=== PATIENT | female | born 1980 | race Caucasian/White ===

== ENCOUNTER → 2018-06-25 06:55 | Outpatient (CLI) | payer OTHER, SELFPAY ==
--- NOTE | 2018-06-25 07:00 | DI.US.S_ITS ---
PROCEDURE: US PELVIC COMPLETE INDICATIONS: DUB TECHNIQUE: Real-time scanning was performed of the pelvic organs, with image documentation. Additional endovaginal scanning was necessary due to incomplete visualization of the adnexal and endometrial structures by transabdominal scanning. COMPARISON: None. FINDINGS: Transabdominal scanning: Limited scanning through the kidneys shows no hydronephrosis. No pathologic free abdominal or pelvic fluid. Endovaginal scanning: Uterus: Uterus is normal in size at 4.5 x 6.4 x 9.5 cm, anteverted. The endometrium measures 9.3 mm in combined thickness. Ovaries: The right ovary measures 1.5 x 1.9 x 2.7 cm and contains a follicular cyst and the left ovary measures 1.2 x 1.3 x 3.3 cm. IMPRESSION: Normal-appearing endometrial lining, free of mass or abnormal fluid collection. No uterine fibroid is seen. Normal appearing ovaries bilaterally with a right-sided follicular cyst measuring approximately 1.2 cm in maximal dimension. Dictated by: Anthony Aaron M.D. on 06/25/2018 at 8:06 Approved by: Anthony Aaron M.D. on 06/25/2018 at 8:08
== END ==
DX: N93.8 Other specified abnormal uterine and vaginal bleeding (principal); N83.01 Follicular cyst of right ovary
CPT/HCPCS: 76830; 76856

== ENCOUNTER → 2018-07-15 16:16 | Outpatient (CLI) | payer OTHER, SELFPAY ==
--- NOTE | 2018-07-15 16:18 | DI.RAD.S_ITS ---
PROCEDURE: XR LUMBAR SPINE MIN 4V INDICATIONS: point tender low back pain TECHNIQUE: 5 views of the lumbar spine acquired. COMPARISON: None. FINDINGS: Bones: 5 nonrib-bearing vertebrae are present. There is normal bony alignment. No vertebral body compression fractures. No suspicious bony lesions. Mild disc height reduction at L5-S1. Mild to moderate facet osteoarthritis at the facet joints at the same level. Soft tissues: Overlying bowel gas pattern is normal. No suspicious soft tissue calcifications. Flexion/extension: There is normal range of motion, with preserved normal alignment. IMPRESSION: Mild degenerative disc disease at L5-S1, with mild to moderate facet osteoarthritis at this level but no abnormal subluxation is seen during flexion and extension lateral image acquisition. Dictated by: Anthony Aaron M.D. on 07/15/2018 at 16:56 Approved by: Anthony Aaron M.D. on 07/15/2018 at 16:57
--- NOTE | 2018-07-15 16:18 | DI.RAD.S_ITS ---
PROCEDURE: XR ANKLE LT MIN 3V INDICATIONS: left ankle pain and swelling TECHNIQUE: 3 views of the ankle were acquired. COMPARISON: None. FINDINGS: Bones: No fractures or dislocations. Ankle mortise is normally aligned. No suspicious bony lesions. A small bone island is present within the posterior malleolus of the distal tibial plafond Soft tissues: No tibiotalar joint effusion. Achilles tendon appears normal. IMPRESSION: Source of ankle pain and swelling not seen. Incidental note is made of a small bone island at the posterior aspect of the distal tibial plafond, located within the posterior malleolus marrow space. Dictated by: Anthony Aaron M.D. on 07/15/2018 at 16:55 Approved by: Anthony Aaron M.D. on 07/15/2018 at 16:56
== END ==
PROVIDERS: Visit Provider Family Medicine
DX: M51.37 Other intervertebral disc degeneration, lumbosacral region (principal); M47.817 Spondylosis without myelopathy or radiculopathy, lumbosacral region; M25.472 Effusion, left ankle; M25.572 Pain in left ankle and joints of left foot; M54.5 Low back pain
CPT/HCPCS: 72110; 73610

== ENCOUNTER → 2018-09-13 14:32 | Outpatient (CLI) | payer OTHER, SELFPAY ==
--- NOTE | 2018-09-13 | DI.MRI.S_ITS ---
PROCEDURE: MRFOOT LT WO CON INDICATIONS: INJURY TO LEFT FOOT TECHNIQUE: Noncontrast sagittal T1 spin echo and T2 fast spin echo with fat saturation, long-axis T1 spin echo and T2 fast spin echo with fat saturation, short-axis T1 spin echo and T2 fast spin echo with fat saturation through the forefoot. COMPARISON: [facility], CR, XR ANKLE LT MIN 3V, 07/15/2018, 15:56. FINDINGS: Image quality: Excellent. Bones and joints: No bone marrow contusions or metatarsal stress fractures. The sesamoid bones appear in expected positions, without internal edema. No metatarsophalangeal joint degeneration. No intraosseous lesions or edema pattern that would suggest underlying infection or neoplasm. Note is made of a small subchondral cyst at the base of the first proximal phalanx due to mild degenerative osteoarthritic thinning of the articular cartilage in that area. Soft tissues: The visualized plantar foot muscles demonstrate normal signal and bulk. Visualized flexor and extensor tendons appear intact, without tenosynovitis. The distal insertions of the peroneus brevis and longus tendons appear intact. The principal Lisfranc ligament appears intact. No soft tissue ganglion cysts or bursal fluid collections. Sagittal images demonstrate no evidence for plantar plate tears. IMPRESSION: No trauma, no ligamentous injury is suspected. Incidental is made of a small subchondral cyst measuring only approximately 3 mm in diameter adjacent to the proximal articular surface of the first proximal phalanx. Otherwise the marrow space appears normal. Dictated by: Anthony Aaron M.D. on 09/15/2018 at 15:26 Approved by: Anthony Aaron M.D. on 09/15/2018 at 15:31
== END ==
PROVIDERS: Visit Provider Podiatrist
DX: S99.922A Unspecified injury of left foot, initial encounter (principal)
CPT/HCPCS: 73718

== ENCOUNTER → 2018-11-06 16:36 | Outpatient (CLI) | payer OTHER, SELFPAY ==
--- NOTE | 2018-11-06 | DI.RAD.S_ITS ---
PROCEDURE: XR KNEE LT 3V INDICATIONS: left knee pain TECHNIQUE: 3 views of the knee were acquired. COMPARISON: None. FINDINGS: Bones: No fractures or dislocations. No suspicious bony lesions. Soft tissues: Small joint effusion. No suspicious soft tissue calcifications. IMPRESSION: Small effusion otherwise no definite radiographic abnormality. If pain persists, consider cross sectional imaging such as CT or MRI for further assessment. Dictated by: Giovanni HORTON Interpreted: Adriana Hernández MD on 11/07/2018 at 8:53 Approved by: Adriana Hernández M.D. on 11/07/2018 at 15:52
--- NOTE | 2018-11-06 | DI.MRI.S_ITS ---
PROCEDURE: MR ANKLE LT WO CON INDICATIONS: LEFT ANKLE PAIN TECHNIQUE: Noncontrast sagittal T1 spin echo and T2 fast spin echo with fat saturation, axial proton density fast spin echo and T2 fast spin echo with fat saturation, coronal T1 spin echo and T2 fast spin echo with fat saturation through the ankle/hindfoot. COMPARISON: None. FINDINGS: Image quality: Excellent. Bones and joints: No bone marrow contusions or fractures. No hindfoot coalitions. No osteochondral injuries of the talar dome. No pathologic joint effusions. Medial structures: The posterior tibialis, flexor digitorum longus, and flexor hallucis longus tendons are intact. The posterior tibial neurovascular bundle appears normal within the tarsal tunnel, without extrinsic mass effect. The deep layer (anterior and posterior tibiotalar ligaments) and superficial layer (tibionavicular, tibiospring, and tibiocalcaneal ligaments) of the deltoid ligament appear normal. The spring ligament components (superomedial calcaneonavicular, medioplantar oblique calcaneonavicular, and inferoplantar longitudinal ligaments) are intact. Lateral structures: The anterior talofibular, calcaneofibular, and posterior talofibular ligaments appear intact. More superiorly, there is edema and fluid signal in the region of anterior tibiofibular ligament with slight widening of tibiofibular syndesmosis, measures approximately 3-4 mm. Posterior tibiofibular ligament appears intact. The tibiofibular syndesmosis is normal in width 2 mm or less. The peroneus longus and brevis tendons demonstrate normal location and morphology. Adjacent bony peroneal tubercle and retrotrochlear prominence are normal in size. The sinus tarsi demonstrates normal fatty signal, without edema, fibrosis, or cyst formation. Visualized sinus tarsi components (cervical ligament, interosseous talocalcaneal ligament, roots of the inferior extensor retinaculum) appear normal. The calcaneonavicular and calcaneocuboid components of the bifurcate ligament appear intact. The dorsal calcaneocuboid ligament appears intact. Anterior structures: The tibialis anterior, extensor hallucis longus, and extensor digitorum longus tendons appear intact. The dorsal talonavicular ligament appears intact. Posterior and plantar structures: Achilles tendon is intact. Medial and lateral bands of the plantar fascia are of normal thickness. No abductor digiti quinti muscle atrophy to suggest Hurtado neuropathy. IMPRESSION: 1. Findings suggestive of sprain and moderate grade partial-thickness tear involving anterior tibiofibular ligament with widening of distal tibiofibular syndesmosis. Posterior tibiofibular ligament is intact. Anterior and posterior talofibular ligaments are grossly intact. 2. Medial ankle ligaments are intact. 3. Ankle tendons are intact. No marrow signal abnormality. Dictated by: Kole Pickens M.D. on 11/07/2018 at 9:30 Approved by: Kole Pickens M.D. on 11/07/2018 at 9:59
== END ==
PROVIDERS: PCP Family Medicine; Visit Provider Podiatrist
DX: M25.562 Pain in left knee (principal); M25.572 Pain in left ankle and joints of left foot; M25.462 Effusion, left knee
CPT/HCPCS: 73562; 73721

== ENCOUNTER → 2019-01-03 08:35 | Outpatient (CLI) | payer OTHER, SELFPAY ==
--- NOTE | 2019-01-03 09:32 | DI.MRI.S_ITS ---
PROCEDURE: MR KNEE LT WO CON INDICATIONS: INTERNAL DERANGEMENT LEFT KNEE, PAIN LEFT KNEE TECHNIQUE: Noncontrast sagittal PD fast spin echo and T2 fast spin echo with fat saturation, sagittal 3-D FLASH with fat saturation; coronal T1 spin echo and PD fast spin echo with fat saturation, and axial PD fast spin echo with fat saturation through the knee. COMPARISON: None. FINDINGS: Image quality: Excellent. Menisci: The medial and lateral menisci demonstrate normal morphology and internal signal. The meniscal root ligaments appear intact. Cruciate ligaments: The anterior and posterior cruciate ligaments appear intact. Medial structures: The medial collateral ligament appears intact. The posterior oblique ligament, semimembranosus tendon insertions, oblique popliteal ligament, and meniscocapsular junction appear intact. Visualized portions of the pes anserinus tendons appear normal. No abnormal bursal fluid. Lateral structures: The lateral collateral ligament, long and short heads of the biceps femoris tendon appear intact. The popliteus tendon appears normal; the popliteofibular ligament appears intact. The posterosuperior and anteroinferior popliteomeniscal fascicles appear intact. The arcuate and fabellofibular ligaments appear intact, on either side of the lateral inferior geniculate artery. Iliotibial band appears normal. Anterior structures: The quadriceps and patellar tendons appear intact. Patellar alignment is normal. No femoral trochlear dysplasia or ventral trochlear prominence. No edema in the infrapatellar fat pad. Bones and cartilage: No bone marrow contusions or fractures. The cartilage of the medial and lateral femorotibial compartments appears normal in thickness. Low-grade chondromalacia near apex of patella cartilage is seen. Joint space: There is physiologic knee joint fluid. No Duong's cyst. Normal appearing synovial plicae are incidentally noted. IMPRESSION: 1. 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 No marrow edema. Trace amount of joint effusion. No popliteal cyst. 2. Cruciate ligaments are intact. No evidence of focal meniscal tear. Dictated by: Kole Pickens M.D. on 01/05/2019 at 9:03 Approved by: Kole Pickens M.D. on 01/05/2019 at 9:07
== END ==
PROVIDERS: PCP Family Medicine; Visit Provider Orthopaedic Surgery
DX: M23.92 Unspecified internal derangement of left knee (principal); M25.562 Pain in left knee; M22.42 Chondromalacia patellae, left knee
CPT/HCPCS: 73721

== ENCOUNTER → 2019-02-26 10:13 | Outpatient (CLI) | payer OTHER, SELFPAY ==
--- NOTE | 2019-02-26 10:15 | DI.RAD.S_ITS ---
PROCEDURE: XR THORACIC SPINE 3V INDICATIONS: Vit D def TECHNIQUE: 3 views of the thoracic spine were acquired. COMPARISON: None. FINDINGS: Bones: No fractures or dislocations. No suspicious bony lesions. 12 pairs of ribs are noted, and appear intact where visualized. Mild degenerative endplate changes are noted in mid to lower thoracic spine. Soft tissues: No paravertebral stripe thickening. IMPRESSION: Mild degenerative disc disease in mid to lower thoracic spine. No acute compression fracture or spondylolisthesis. Dictated by: Kole Pickens M.D. on 02/26/2019 at 11:52 Approved by: Kole Pickens M.D. on 02/26/2019 at 11:52
[2019-02-26 11:06] LABS: Alanine Aminotransferase 26 IU/L (9-52); Albumin 4.8 g/dL (3.5-5.0); Albumin Globulin Ratio 1.4 (1.0-2.8); Alkaline Phosphatase 75 U/L (38-126); Aspartate Aminotransferase 22 IU/L (14-36); BUN Creatinine Ratio 14.3 (6-22); Bilirubin Total 0.4 mg/dL (0.2-1.3); Blood Urea Nitrogen 10 mg/dL (7-17); Calcium 9.5 mg/dL (8.4-10.2); Carbon Dioxide 27 mmol/L (22-32); Chloride 103 mmol/L (98-107); Estimated Glomerular Filt Rate > 60.0 mL/min (>60); Globulin 3.4 g/dL (1.7-4.1); Glucose 95 mg/dL (70-100); HEMOLYSIS < 15 (0-50); Potassium 3.7 mmol/L (3.4-5.1); Sodium 141 mmol/L (137-145); Total Protein 8.2 g/dL (6.3-8.2)
[2019-03-01 21:24] LABS: 1 25 Dihydroxy Vitamin D 69 pg/mL (18-72)
== END ==
PROVIDERS: PCP Family Medicine; Visit Provider Hospitalist
DX: E55.9 Vitamin D deficiency, unspecified (principal)
CPT/HCPCS: 36415; 72072; 80053; 82652

== ENCOUNTER → 2019-04-16 13:24 | Outpatient (CLI) | payer OTHER, SELFPAY | PROVIDERS: PCP Family Medicine; Visit Provider Hospitalist | DX: E55.9 Vitamin D deficiency, unspecified (principal); Z82.62 Family history of osteoporosis | CPT/HCPCS: 77080 ==

== ENCOUNTER → 2019-05-11 16:44 | Outpatient (CLI) | payer OTHER, SELFPAY ==
[2019-05-11 18:31] LABS: Follicle Stimulating Hormone 3.86 mIU/mL
== END ==
PROVIDERS: PCP Family Medicine; Visit Provider Obstetrics & Gynecology
DX: N92.0 Excessive and frequent menstruation with regular cycle (principal)
CPT/HCPCS: 36415; 83001